=== PATIENT | male | born 1950 | race Two or more races ===

== ENCOUNTER 2018-07-23 16:00 | Inpatient (IN) | payer MEDICARE, OTHER ==
[~2018-07-23] VITALS: Ht 170.2 cm; Wt 88.8 kg
[2018-07-23] MEDS ORDERED: ONDANSETRON HCL 4 MG/2 ML VIAL ONE (20:05)
[2018-07-23 20:11] LABS: Basophils # (auto) 0 uL; Basophils % (auto) 0.1 % (0.0-2.0); Eosinophils # (auto) 0 uL; Eosinophils % (auto) 0.1 % (0.0-7.0); Hematocrit 42.1 % (41.0-53.0); Hemoglobin 14.9 g/dL (13.5-17.5); Lymphocytes # (auto) 0.8 uL; Lymphocytes % (auto) 9.7 % (10.0-50.0); Mean Corpuscular Hemoglobin 33.8 pg (28.0-32.0); Mean Corpuscular Hgb Conc. 35.3 g/dL (32.0-36.0); Mean Corpuscular Volume 95.7 fL (80.0-100.0); Monocytes # (auto) 0.8 uL; Monocytes % (auto) 9.6 % (0.0-12.0); Neutrophils # (auto) 6.8 uL; Neutrophils % (auto) 80.5 % (37.0-80.0); Nucleated Red Blood Cells % 0.1 %; Platelet Count (auto) 118 10^3/uL (140-450); Red Cell Distribution Width 13.6 % (11.8-14.3); White Blood Cell 8.5 10^3/uL (4.4-10.8)
[2018-07-23 20:12] LABS: INR 1.07 (0.9-1.15); Partial Thromboplastin Time 24.5 sec (23.78-33.04); Prothrombin Time 11.4 sec (9.27-12.13)
[2018-07-23 20:21] LABS: Albumin 3.6 g/dL (3.4-5.0); BUN/Creatinine Ratio 10.4; Calcium 7.8 mg/dL (8.5-10.1); Magnesium 2.2 mg/dL (1.6-2.6); Potassium 3.1 mmol/L (3.5-5.1)
[2018-07-23 20:32] LABS: Bilirubin, Total 1.1 mg/dL (0.2-1.0); Total Protein 6.6 g/dL (6.4-8.2)
[2018-07-23] MEDS ORDERED: ACETAMINOPHEN 325 MG TAB PO PRN (21:15)
[2018-07-23] MEDS ORDERED: HYDROcodone-ACET 5/325MG TAB PO PRN (21:15)
[2018-07-23] MEDS ORDERED: NITROGLYCERIN 0.4 MG SL TAB SL PRN (21:15)
[2018-07-23] MEDS ORDERED: MORPHINE SULF INJ 2 MG/ML SYRINGE 1ML IV PRN (21:15)
[2018-07-23] MEDS ORDERED: POTASSIUM CHL 20 Meq TABLET PO ONE (21:15)
[2018-07-23] MEDS ORDERED: ONDANSETRON HCL 4 MG/2 ML VIAL IV PRN (21:15)
[2018-07-23 22:00] VITALS: BP 159/85
[2018-07-23] MEDS: FAMOTIDINE 20 MG TAB PO SCH (22:00)
[2018-07-24 05:00] VITALS: BP 145/91
[2018-07-24 08:44] VITALS: BP 156/88
[2018-07-24 09:04] LABS: Basophils # (auto) 0 uL; Basophils % (auto) 0.3 % (0.0-2.0); Eosinophils # (auto) 0 uL; Eosinophils % (auto) 0.2 % (0.0-7.0); Hematocrit 45.6 % (41.0-53.0); Hemoglobin 15.9 g/dL (13.5-17.5); Lymphocytes # (auto) 1.1 uL; Lymphocytes % (auto) 17.1 % (10.0-50.0); Mean Corpuscular Hemoglobin 33.7 pg (28.0-32.0); Mean Corpuscular Hgb Conc. 34.8 g/dL (32.0-36.0); Mean Corpuscular Volume 96.9 fL (80.0-100.0); Monocytes # (auto) 0.8 uL; Monocytes % (auto) 12.6 % (0.0-12.0); Neutrophils # (auto) 4.4 uL; Neutrophils % (auto) 69.8 % (37.0-80.0); Nucleated Red Blood Cells % 0.2 %; Platelet Count (auto) 130 10^3/uL (140-450); Red Blood Cells 4.71 10^6/uL (4.5-5.90); Red Cell Distribution Width 13.6 % (11.8-14.3); White Blood Cell 6.3 10^3/uL (4.4-10.8)
[2018-07-24 09:29] LABS: Albumin 3.8 g/dL (3.4-5.0); Bilirubin, Total 1.2 mg/dL (0.2-1.0); Calcium 8.5 mg/dL (8.5-10.1); Potassium 3.6 mmol/L (3.5-5.1); Total Protein 7.1 g/dL (6.4-8.2)
[2018-07-24] MEDS: ASPirin 81 mg TAB PO SCH (09:43)
[2018-07-24] MEDS: BENAZEPRIL HCL 10 MG TAB PO SCH (09:43)
[2018-07-24] MEDS: ENOXAPARIN SOD 40 MG/0.4 ML SYRINGE SC SCH (09:44)
[2018-07-24] MEDS: FAMOTIDINE 20 MG TAB PO SCH ×2 (09:44→22:41)
[2018-07-24] MEDS ORDERED: METOPROLOL TARTRATE 50 MG TAB PO ONE (11:45)
[2018-07-24 12:31] LABS: Cholesterol 249 mg/dL (< 200); HDL Cholesterol 90 mg/dL (40-59); LDL Cholesterol 154 mg/dL (< 100); Triglycerides 94 mg/dL (< 150)
[2018-07-24 13:00] VITALS: BP 140/76
[2018-07-24 17:15] VITALS: BP 142/93
[2018-07-24 22:00] VITALS: BP 148/108
[2018-07-24] MEDS ORDERED: ATORVASTATIN 20 MG TAB PO SCH (22:00)
[2018-07-24] MEDS: METOPROLOL TARTRATE 50 MG TAB PO SCH (22:41)
[2018-07-24] MEDS: chlordiazePOXIDE HCL 25 MG CAP PO PRN (22:41)
[2018-07-25] MEDS ORDERED: LORazepam 2MG/ML-1ML VIAL ONE (03:14)
[2018-07-25] MEDS: LORazepam 2MG/ML-1ML VIAL IV PRN ×3 (03:31→22:45)
[2018-07-25] MEDS ORDERED: HALOPERIDOL LACTATE 5 MG/ML INJ VIAL ONE (04:05)
[2018-07-25] MEDS ORDERED: HALOPERIDOL LACTATE 5 MG/ML INJ VIAL IM ONE (04:30)
[2018-07-25] MEDS: chlordiazePOXIDE HCL 25 MG CAP PO PRN ×2 (07:53→20:00)
[2018-07-25 09:00] VITALS: BP 152/81
[2018-07-25] MEDS: ENOXAPARIN SOD 40 MG/0.4 ML SYRINGE SC SCH (10:00)
[2018-07-25] MEDS: ASPirin 81 mg TAB PO SCH (11:49)
[2018-07-25] MEDS: METOPROLOL TARTRATE 50 MG TAB PO SCH ×2 (11:49→21:10)
[2018-07-25] MEDS: FAMOTIDINE 20 MG TAB PO SCH ×2 (11:50→21:10)
[2018-07-25] MEDS: BENAZEPRIL HCL 10 MG TAB PO SCH (11:50)
[2018-07-25] MEDS ORDERED: HALOPERIDOL LACTATE 5 MG/ML INJ VIAL IM PRN (12:45)
[2018-07-25 13:00] VITALS: BP 174/100
[2018-07-25] MEDS: THIAMINE INJ 100 MG, MULTIPLE VITAMIN 10 ML, FOLIC ACID 1 MG, MAGNESIUM SULF SDV 50% 8 ... IV SCH ×5 (13:30)
[2018-07-25 17:00] VITALS: BP 154/87
[2018-07-25] MEDS ORDERED: IOHEXOL 350 MG/ML 100ML IJ ONE (17:03)
[2018-07-25] MEDS ORDERED: LORazepam 2MG/ML-1ML VIAL IV PRN (18:45)
[2018-07-25] MEDS: ATORVASTATIN 20 MG TAB PO SCH (21:09)
[2018-07-25 21:10] VITALS: BP 136/71
[2018-07-25] MEDS: TEMAZEPAM 15 MG CAP PO PRN (21:10)
[2018-07-26 04:44] VITALS: BP 127/75
[2018-07-26 08:00] VITALS: BP_SYST 125; BP_SYST 140; BP_DIAS 68; BP_DIAS 87
[2018-07-26] MEDS: ASPirin 81 mg TAB PO SCH (10:00)
[2018-07-26] MEDS: FAMOTIDINE 20 MG TAB PO SCH ×2 (11:30→21:24)
[2018-07-26] MEDS: BENAZEPRIL HCL 10 MG TAB PO SCH (11:31)
[2018-07-26] MEDS: METOPROLOL TARTRATE 50 MG TAB PO SCH ×2 (11:31→21:23)
[2018-07-26] MEDS: chlordiazePOXIDE HCL 25 MG CAP PO PRN ×2 (11:32→20:00)
[2018-07-26] MEDS: ENOXAPARIN SOD 40 MG/0.4 ML SYRINGE SC SCH (11:33)
[2018-07-26 13:00] VITALS: BP 137/80
[2018-07-26] MEDS: THIAMINE INJ 100 MG, MULTIPLE VITAMIN 10 ML, FOLIC ACID 1 MG, MAGNESIUM SULF SDV 50% 8 ... IV SCH ×5 (13:01)
[2018-07-26 16:30] VITALS: BP 126/70
[2018-07-26] MEDS: ATORVASTATIN 20 MG TAB PO SCH (21:23)
[2018-07-26] MEDS: TEMAZEPAM 15 MG CAP PO PRN (21:24)
[2018-07-26] MEDS: LORazepam 2MG/ML-1ML VIAL IV PRN (22:49)
[2018-07-27 04:43] VITALS: BP 141/84
[2018-07-27 08:00] VITALS: BP 122/62
[2018-07-27 08:54] VITALS: BP 138/76
[2018-07-27] MEDS: BENAZEPRIL HCL 10 MG TAB PO SCH (10:12)
[2018-07-27] MEDS: FAMOTIDINE 20 MG TAB PO SCH (10:12)
[2018-07-27] MEDS: METOPROLOL TARTRATE 50 MG TAB PO SCH (10:12)
[2018-07-27] MEDS: ENOXAPARIN SOD 40 MG/0.4 ML SYRINGE SC SCH (10:13)
[2018-07-27] MEDS: ASPirin 81 mg TAB PO SCH (10:14)
[2018-07-27] MEDS: chlordiazePOXIDE HCL 25 MG CAP PO PRN (10:20)
[2018-07-27] MEDS: THIAMINE INJ 100 MG, MULTIPLE VITAMIN 10 ML, FOLIC ACID 1 MG, MAGNESIUM SULF SDV 50% 8 ... IV SCH ×5 (12:00)
[2018-07-27 13:02] VITALS: BP 136/80
[2018-07-27 13:33] VITALS: BP 136/8
== END 2018-07-27 15:00 | disposition home or self-care (01) | DRG 280 ==
LOC: ER 16:00 → TELE 16:01 → TELE-WESTW 22:40
PROVIDERS: ADMIT Nurse Practitioner; ATTEND Family Medicine
DX: I21.4 Non-ST elevation (NSTEMI) myocardial infarction (principal); G93.41 Metabolic encephalopathy; G45.9 Transient cerebral ischemic attack, unspecified; F10.231 Alcohol dependence with withdrawal delirium; I49.9 Cardiac arrhythmia, unspecified; I48.91 Unspecified atrial fibrillation; E87.5 Hyperkalemia; E66.9 Obesity, unspecified; I10 Essential (primary) hypertension; E78.00 Pure hypercholesterolemia, unspecified; I48.0 Paroxysmal atrial fibrillation; R56.9 Unspecified convulsions; Z68.30 Body mass index [BMI] 30.0-30.9, adult; Z82.49 Family history of ischemic heart disease and other diseases of the circulatory system; Z83.3 Family history of diabetes mellitus; Z82.0 Family history of epilepsy and other diseases of the nervous system
CPT/HCPCS: 36415; 70450; 71045; 71275; 80053; 80061; 80320; 82140; 82962; 83735; 84443; 84484; 85025; 85379; 85610; 85730; 87040; 93005; 93306; 93886; 93970; 94761; 95819; A4565; A6257; J2405